=== PATIENT | female | born 1950 | race Caucasian/White ===

== ENCOUNTER 2018-03-07 15:28 | Outpatient (CLI) | payer MEDICARE | END 2018-03-07 15:29 | disposition home or self-care (01) | LOC: BICMAMMO 15:28 | PROVIDERS: ATTEND Obstetrics & Gynecology | DX: Z12.31 Encounter for screening mammogram for malignant neoplasm of breast (principal); R92.1 Mammographic calcification found on diagnostic imaging of breast | CPT/HCPCS: 77063; 77067 ==

== ENCOUNTER 2019-02-12 17:14 | Emergency (ER) | payer MEDICARE ==
[2019-02-12] MEDS ORDERED: Acetaminophen 500 MG TAB ONE (17:39)
--- NOTE | 2019-02-12 19:07 | RAD ---
LEFT SHOULDER THREE VIEWS: HISTORY: Patient fell on shoulder today with shoulder pain. FINDINGS: The bones appear somewhat demineralized. There are no signs of fracture or dislocation. IMPRESSION: Negative left shoulder. POS: INGA
== END 2019-02-12 19:10 | disposition home or self-care (01) ==
LOC: SCSER 17:14
DX: S43.402A Unspecified sprain of left shoulder joint, initial encounter (principal); J44.9 Chronic obstructive pulmonary disease, unspecified; F32.9 Major depressive disorder, single episode, unspecified; W19.XXXA Unspecified fall, initial encounter

== ENCOUNTER 2019-07-08 15:23 | Outpatient (CLI) | payer MEDICARE ==
--- NOTE | 2019-07-08 17:08 | MMO ---
Bilateral MAMMO Bilat Screen [facility]. CLINICAL HISTORY: Patient is 68 years old and is seen for screening. The patient has no family history of breast cancer. The patient has no personal history of cancer. VIEWS: The views performed were: bilateral craniocaudal with tomosynthesis and bilateral mediolateral oblique with tomosynthesis. FILMS COMPARED: The present examination has been compared to prior imaging studies performed at [facility] on 10/15/2014, 11/22/2015, 02/21/2017 and 03/07/2018. MAMMOGRAM FINDINGS: The breasts are heterogeneously dense, which could obscure a lesion on mammography. There are vascular calcifications seen in both breasts. There are no suspicious masses, suspicious calcifications, or new areas of architectural distortion. IMPRESSION: THERE IS NO MAMMOGRAPHIC EVIDENCE OF MALIGNANCY. A ROUTINE FOLLOW-UP MAMMOGRAM IN 1 YEAR IS RECOMMENDED. THE RESULTS OF THIS EXAM WERE SENT TO THE PATIENT. ACR BI-RADS Category 2 - Benign finding MAMMOGRAPHY NOTE: 1. A negative mammogram report should not delay a biopsy if a dominant of clinically suspicious mass is present. 2. Approximately 10% to 15% of breast cancers are not detected by mammography. 3. Adenosis and dense breasts may obscure an underlying neoplasm. Reported by: SUE DEE MD Electonically Signed: [id number]
== END 2019-07-08 15:24 | disposition home or self-care (01) ==
LOC: BICMAMMO 15:23
PROVIDERS: ATTEND Obstetrics & Gynecology
DX: Z12.31 Encounter for screening mammogram for malignant neoplasm of breast (principal)
CPT/HCPCS: 77063; 77067

== ENCOUNTER 2019-10-10 11:11 | Outpatient (CLI) | payer MEDICARE ==
[2019-10-10 12:17] LABS: Hemoglobin 13.4 g/dL (12.0-16.0); Mean Corpuscular HGB CONC 33.6 g/dL (32.0-36.0); Mean Corpuscular Hemoglobin 33.7 pg (27.0-31.0); Mean Platelet Volume 6.1 fL (7.4-10.4); Platelet Count 287 thou/uL (130-400); RBC Distribution Width 12.1 % (11.5-14.5); Red Blood Cell (RBC) Count 3.98 mill/uL (4.20-5.40); White Blood Cell (WBC) Count 5.3 thou/uL (4.8-10.8)
== END 2019-10-10 11:12 | disposition home or self-care (01) ==
LOC: LABBT 11:11
PROVIDERS: ATTEND Obstetrics & Gynecology
DX: Z01.812 Encounter for preprocedural laboratory examination (principal); A63.0 Anogenital (venereal) warts
CPT/HCPCS: 85027; 86850; 86900; 86901

== ENCOUNTER 2019-10-13 08:30 | Day surgery (SDC) | payer MEDICARE ==
[2019-10-10 11:28] VITALS: BMI 24.2
[2019-10-13] MEDS ORDERED: CeleCOXIB 100 MG CAP ONE (09:03)
[2019-10-13] MEDS ORDERED: Gabapentin 300 MG CAP ONE (09:03)
[2019-10-13] MEDS ORDERED: Famotidine/PF 20 mg/2ml Vial ONE (09:04)
--- NOTE | 2019-10-13 09:09 | HP ---
PREOPERATIVE HISTORY AND PHYSICAL: SCHEDULED DATE FOR SURGERY: 10/13/2019. HISTORY OF PRESENT ILLNESS: Ms. Washington is 68 years old, who is postmenopausal white female, who has had history of cervical dysplasia in the past. She underwent a LEEP procedure in [address] Montes for high-grade dysplasia. Apparently, the patient reports after the procedure she had recurrent infections that took a while to heal. She subsequently had a followup Pap smear performed by Dr. Gretchen Vasquez in July showing ASC, atypical squamous cells of unknown significance again with high-risk HPV virus. By protocol, Dr. Vasquez attempted colposcopy of the cervix and apparently it was very difficult to visualize any cervical opening due to severe cervical spine stenosis and scar tissue. She was referred to me on August 26 for evaluation. Again, I performed a physical examination along with colposcopy and essentially was unable to visualize the cervical opening or transformation zone due to scarring of the residual cervix. We did give the patient Osphena for the atrophy in hopes to improve the visualization and location of the cervical opening recently. PAST MEDICAL HISTORY: Cervical dysplasia. In addition, arthritis and asthma along with some hypertension. PAST SURGICAL HISTORY: She has had some dental surgery, LEEP procedure in 2017, and also surgery on her wrist. CURRENT MEDICATIONS: 1. Celebrex 200 mg tablet twice daily as needed. 2. Fluticasone propionate 50 mcg per nasal spray suspension daily. 3. Lamotrigine 150 mg tablet . 4. Lorazepam 1 mg daily at bedtime. 5. Osphena 60 mg tablet daily. 6. Sertraline 100 mg tablet daily. 7. Triamterene 37.5 mg - hydrochlorothiazide 25 mg tablet daily. 8. Ventolin inhaler 90 mcg 2 puffs q.4 hours p.r.n. ALLERGIES: SHE HAS NO KNOWN DRUG ALLERGIES. SOCIAL HISTORY: Nonsmoker. No excessive alcohol use. PHYSICAL EXAMINATION: VITAL SIGNS: Height is 5 feet 6 inches, weight 149, BMI 24. Blood pressure 112/70, pulse 77, respirations 18, O2 saturation 98% on room air. HEENT: Within normal limits. CHEST: Clear to auscultation. HEART: Regular rate and rhythm. S1, S2 heart sounds. No murmurs, rubs, or gallops. ABDOMEN: Soft, nontender, and nondistended. No palpable masses. PELVIC: On colposcopic exam, vulva and vagina had no lesions. Urethra had no abnormal discharge or mass. No vaginal tenderness or abnormal vaginal discharge noted. There is palpable residual cervical tissue in the apex of the vagina. There were no lesions visualized on colposcopy externally, but essentially the cervix was scarred and flushed to the vagina. There was no visualized cervical os other than knowing the palpable texture of the cervix when the region of the presumed cervix was being examined. Uterus was small and nontender. Adnexa nontender with no masses. 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 The patient has an unsatisfactory colpo. Also, she has cervical spine stenosis from the LEEP procedure with inability to ascertain the exact location of the cervical os despite recent estrogen therapy treatment trial. We will attempt to locate the cervical os. We created a passage into the cervix to ascertain location and placement of a uterine cervical manipulator with attempt to proceed with robotic total laparoscopic hysterectomy and BSO. I did discuss with the patient the importance of removing the residual cervix and this may not be possible via robotic hysterectomy procedure if unable to isolate the cervix with the manipulator. Therefore, an abdominal hysterectomy may be indicated, where I would be able to palpate the change of the end of the cervix through the vagina in order to get good margins to renew the abnormal tissue completely. Risks and benefits of this procedure, cost, and plan has been laid out for the patient and she is in agreement. She is set up for surgery on 10/13/2019. Job ID: [id number]
[2019-10-13] MEDS ORDERED: ePHEDrine/0.9% NaCl/PF SYRINGE 50 mg/10 ml ONE (10:09)
[2019-10-13] MEDS ORDERED: Dexamethasone 20 MG/5 ML VIAL ONE (10:09)
[2019-10-13] MEDS ORDERED: PROPOFOL 200 MG/20 ML VIAL ONE (10:09)
[2019-10-13] MEDS ORDERED: Glycopyrrolate 0.2 MG/ML 5 ML SYRINGE ONE (10:09)
[2019-10-13] MEDS ORDERED: Rocuronium Bromide 10 MG/ML (10ML VIAL) ONE (10:09)
[2019-10-13] MEDS ORDERED: Ondansetron PF 4 MG/2 ML Vial ONE (10:09)
[2019-10-13] MEDS ORDERED: Lidocaine 1% PF 5 ML VIAL ONE (10:09)
[2019-10-13] MEDS ORDERED: Midazolam HCl 2 mg/2 ml Vial ONE (11:38)
[2019-10-13] MEDS ORDERED: HYDROmorphone 0.5 MG/0.5 ML SYRINGE ONE (12:10)
[2019-10-13] MEDS ORDERED: Fentanyl 100 MCG/2 ML VIAL ONE (12:10)
[2019-10-13] MEDS ORDERED: Bupivacaine PF 0.5% 30 ML VIAL ONE (12:11)
[2019-10-13] MEDS ORDERED: Ondansetron PF 4 MG/2 ML Vial IVP PRN ×2 (14:17→14:42)
[2019-10-13] MEDS ORDERED: Bisacodyl 10 MG SUPP PR PRN (14:17)
[2019-10-13] MEDS ORDERED: diphenhydrAMINE 25 MG CAP PO PRN ×2 (14:17→14:42)
[2019-10-13] MEDS ORDERED: Zolpidem Tartrate 5 MG TAB PO PRN ×2 (14:17→14:42)
[2019-10-13] MEDS ORDERED: Morphine 4 MG/ML VIAL SLOW IVP PRN (14:17)
[2019-10-13] MEDS ORDERED: traMADol HCl 50 MG TAB PO PRN ×2 (14:17)
[2019-10-13] MEDS ORDERED: Promethazine HCl 25 MG/ML VIAL IM PRN ×3 (14:17→14:42)
[2019-10-13] MEDS ORDERED: Simethicone Chewable 80 MG TAB PO PRN (14:17)
[2019-10-13] MEDS ORDERED: Azelastine 137 MCG/Spray 30 ML NS PRN (14:23)
[2019-10-13] MEDS ORDERED: PROVENTIL INHALER 6.7 G (200 INHALATIONS) INH PRN (14:23)
[2019-10-13] MEDS ORDERED: TRIAMTERENE 50 MG PO PRN (14:23)
[2019-10-13] MEDS ORDERED: FLUTICASONE FUROATE NS PRN (14:23)
[2019-10-13] MEDS ORDERED: fentaNYL Citrate/PF 2,000 MCG in Sodium Chloride 0.9% 60 ML IV PRN (14:42)
[2019-10-13] MEDS ORDERED: diphenhydrAMINE 50 MG/ML VIAL IVP PRN (14:42)
[2019-10-13] MEDS ORDERED: diphenhydrAMINE 50 MG/ML VIAL IM PRN (14:42)
[2019-10-13] MEDS ORDERED: Promethazine HCl 25 MG/ML VIAL SLOW IVP PRN (14:42)
[2019-10-13] MEDS ORDERED: Ondansetron HCl/PF 4 MG/2 ML Vial IVP PRN (14:42)
[2019-10-13] MEDS ORDERED: Naloxone HCl 0.4 mg/ml Vial IV PRN (14:42)
[2019-10-13] MEDS ORDERED: Promethazine HCl 25 MG/ML VIAL ONE (14:44)
[2019-10-13] MEDS ORDERED: Communication Order-Pharmacy FS SCH (14:45)
--- NOTE | 2019-10-13 16:37 | OP ---
DATE OF PROCEDURE: 10/13/2019 PREOPERATIVE DIAGNOSES: 1. A 68-year-old white female with history of previous high-grade cervical dysplasia with loop electrosurgical excision procedure. 2. 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 3. Eight cervical stenosis from prior loop electrosurgical excision procedure infection, unable to evaluate colposcopically. POSTOPERATIVE DIAGNOSES: 1. A 68-year-old white female with history of previous high-grade cervical dysplasia with loop electrosurgical excision procedure. 2. 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 3. Eight cervical stenosis from prior loop electrosurgical excision procedure infection, unable to evaluate colposcopically. PROCEDURES PERFORMED: Total abdominal hysterectomy with bilateral salpingo-oophorectomy. PEARL PELLER SURGEON: Raven Santana PA-C ESTIMATED BLOOD LOSS: 50 mL. COMPLICATIONS: None. COUNTS: Correct x2. ANTIBIOTICS: 2 g Ancef on-call to OR. ANESTHESIA: General endotracheal anesthetic agent. FINDINGS: 1. Cervix with scar tissue and being flushed against the vaginal wall with minimal rise of the cervix from the vagina prohibiting placement of the GRACE uterine manipulator and also placed in the cervical cup for determining cervical margins. 2. Clear urine present in De La Cruz catheter postprocedure and bladder was watertight to distention intraoperatively. 3. Post menopausal atretic appearing ovaries and fallopian tubes and uterus. DISPOSITION: Recovery room, stable. DESCRIPTION OF PROCEDURE: The patient previously received informed consent regards to surgery. She was taken back to the operating room, where she received a general endotracheal anesthetic agent without complications. De La Cruz catheter was placed at this time. We then did an exam under anesthesia with a speculum. The cervix was difficult to ascertain its position, but was palpable and extra firmness of the texture of the cervix. It was on the right side of the midline of the vaginal vault. This area was grasped with a tenaculum. When the cervix and uterus were pulled down, you could tell the outline of the cervix, but there was significant amount of scar tissue; however, would presume to be the cervical os. I attempted to pass a tonsil clamp, hemostatic clamp, and then a Metzenbaum scissor incision in this area. I was unable to get into the tissue of the cervical os and endocervical canal. It was noted that the cervical tissue was very diminutive in height and was made a difficult for the cervical cup to fit over the cervix to delineate its margin. Therefore, the plan was switched to a total abdominal hysterectomy and BSO approach. The tenaculum and speculum removed. The abdomen had been already prepped in sterile fashion. A Pfannenstiel incision was made in the lower abdomen, was carried down to the fascia. Fascia was nicked in the midline. Fascial incision was extended bilaterally using curved Carter scissors. The rectus fascia was dissected superiorly and inferiorly off the rectus muscle bellies. The rectus muscle bellies were divided in midline. Peritoneal cavity was entered and peritoneal incision was extended. The Bob O retractor was placed along with a laparotomy sponge, exposing the operative site. The small uterus was grasped at the cornua with Tiny clamps. The left round ligament was isolated, was suture ligated and tied. The round ligament was transected with Bovie cautery, anterior leaf of the broad ligament was entered, dissecting the vesicouterine peritoneum in a layering technique. In the posterior leaf of the broad ligament, a defect was made underlying the IP ligament. This was clamped and transected and tied with a 4.5 tie of 0 Vicryl suture. The left uterine vessels were skeletonized and then, a Omari clamp was placed in the internal cervical os region and this was transected and suture ligated. Straight [place] within the pedicle was then placed grasping the cardinal ligaments and uterosacral ligaments. This was clamped and tied and hemostasis was confirmed. This was carried out again on the patient's right side in similar fashion. Again, the right round ligament was suture ligated and transected. The anterior leaf of the broad ligament was entered. The vesicouterine incision was incised and the bladder was dropped down in layering technique. The bladder was distended during this to ensure that it properly had been atraumatically brought down past the cervical vaginal margin with another centimeter margin of the vaginal tissue due to the history of dysplasia. The uterine vessels were again skeletonized posterior window and defect in the posterior broad ligament was made clamping the IP ligament. This was also transected and suture ligated with 4.5 suture of 0 Vicryl. As the uterine vessels were skeletonized, they were clamped again and transected and then suture ligated for hemostasis confirmation. Straight [place] clamp was placed medial to this from the previous pedicle, rasping remainder of the cardinal ligaments and uterosacral ligaments. We then made it down past the cervical vaginal angle. Two Omari clamps were then placed at the vaginal angles. Cervical vaginal angles meeting in the midline. The specimen within endocervix was excised with Carter scissors. Angle sutures were placed with Hofmeister stitch fashion of 0 Vicryl suture bilaterally. Two interrupted [id number] stitches in the vaginal cuff were then placed after confirming hemostasis. The pelvis was irrigated and suctioned. There was area of a small venous bleed on the left pelvic sidewall. This was grasped with a DeBakey pickups and it cauterized for hemostasis. The pelvis again was irrigated and suctioned. Hemostasis was confirmed. All the fallopian tubes and ovaries had been removed intact on specimens that all been sent for final pathology. The Bob O retractor was removed along with all the laparotomy sponges. The rectus muscle bellies were inspected, noted to be hemostatic. The fascia was closed with 0 PDS suture x2 in a running continuous fashion. Subcutaneous tissue was noted to be hemostatic prior to skin approximation with zuri. The surgery was terminated. No anesthetic or surgical complications occurred. Job ID: [id number]
[2019-10-13] MEDS: Acetaminophen 1,000 MG in Premix Bag 1 BAG IVPB SCH (18:28)
[2019-10-13] MEDS: Sodium Chloride 0.9% 1,000 ML IV SCH (18:28)
[2019-10-13] MEDS: Ketorolac Tromethamine 30 MG/ML VIAL IVP SCH (18:28)
[2019-10-13] MEDS ORDERED: lamoTRIgine 100 MG TAB PO SCH (21:00)
[2019-10-13] MEDS ORDERED: Lorazepam 1 MG TAB PO SCH (21:00)
[2019-10-14] MEDS: Acetaminophen 1,000 MG in Premix Bag 1 BAG IVPB SCH ×3 (00:58→13:16)
[2019-10-14] MEDS: Ketorolac Tromethamine 30 MG/ML VIAL IVP SCH ×2 (01:35→08:20)
[2019-10-14] MEDS: Sodium Chloride 0.9% 1,000 ML IV SCH ×3 (03:05→13:20)
[2019-10-14 05:59] LABS: Hemoglobin 10.4 g/dL (12.0-16.0); Mean Corpuscular HGB CONC 33.5 g/dL (32.0-36.0); Mean Corpuscular Hemoglobin 33.7 pg (27.0-31.0); Mean Platelet Volume 5.9 fL (7.4-10.4); Platelet Count 237 thou/uL (130-400); RBC Distribution Width 12.1 % (11.5-14.5); Red Blood Cell (RBC) Count 3.09 mill/uL (4.20-5.40); White Blood Cell (WBC) Count 8.2 thou/uL (4.8-10.8)
--- NOTE | 2019-10-14 08:27 | PDOC.EVN ---
Event Note - Event Note Event Note: Some nausea this AM. Otherwise; good pain control. O; HCT 31.1% FRED 90/52 P85 R18 U/o 2400 ml ABDO soft/ non distended. Inciison c/d/i. A/P post op day 1 from CORAZON/BSO for recurrent cervical dysplasia with severely stenotic cervix from prior LEEP..Routine post op care.
[2019-10-14] MEDS ORDERED: HYDROcodone/Acetaminophen 5/325 mg Tablet PO PRN ×2 (11:31→11:32)
[2019-10-14 12:03] VITALS: BP 89/51; TEMP 99.1
[2019-10-14] MEDS ORDERED: Ibuprofen 800 MG TAB PO SCH (14:00)
--- NOTE | 2019-10-15 04:36 | DIS ---
DATE OF ADMISSION: 10/13/2019 DATE OF DISCHARGE: 10/14/2019 DIAGNOSES: 1. Recurrent cervical dysplasia. 2. Severely stenotic cervical stenosis. 3. Desires definitive surgical therapy. PROCEDURE PERFORMED: CORAZON-BSO. SUMMARY OF HOSPITAL COURSE: Ms. Washington is a 68-year-old white female with history of high-grade cervical dysplasia in the past, where she underwent a LEEP procedure of the cervix approximately two years prior. She had postoperative complication with significant infection and as a result had developed severe cervical stenosis. She had had again followup Pap smear showing atypical cervical cells with high-risk HPV infection and there was inability to perform colposcopy due to the scarring of the cervix and the stenosis. She had an attempted robotic hysterectomy, but the cervical stenosis made it unable to find appropriate endocervical canal tracking and also the cervix was flushed with vagina making a difficult to delineate its margin. She therefore underwent a CORAZON-BSO with removal of the uterus, cervix, and bilateral fallopian tubes and ovaries. Postoperatively, the patient has done well. She is tolerating a regular diet, ambulating, voiding without difficulty on postop day #1. Pain control has been adequate with oral Talihina and ibuprofen. Her hematocrit on postop day #1 was 31.1%. Pathology is pending at time of this dictation. She desires to be discharged home and she will be discharged home with Talihina 5-325 mg one p.o. q.6 hours p.r.n. pain and [id number] ibuprofen as directed. She will be scheduled for staple removal of her incision on postop day #7 and also six weeks postoperatively. We will follow up pathology once it is available in the next day or so. Job ID: [id number]
== END 2019-10-14 16:40 | disposition home or self-care (01) ==
LOC: SDC 08:30 → 3SE 14:16 → SDC 10-14 16:40
PROVIDERS: ATTEND Obstetrics & Gynecology
PROC: 0UT90ZZ Resection of Uterus, Open Approach (ICD-10-PCS; principal; 2019-10-13)
PROC: 0UT20ZZ Resection of Bilateral Ovaries, Open Approach (ICD-10-PCS; 2019-10-13)
PROC: 0UT70ZZ Resection of Bilateral Fallopian Tubes, Open Approach (ICD-10-PCS; 2019-10-13)
DX: N87.0 Mild cervical dysplasia (principal); D25.9 Leiomyoma of uterus, unspecified; N83.312 Acquired atrophy of left ovary; N83.311 Acquired atrophy of right ovary; N88.2 Stricture and stenosis of cervix uteri; I10 Essential (primary) hypertension; M19.90 Unspecified osteoarthritis, unspecified site; J45.909 Unspecified asthma, uncomplicated; Z79.1 Long term (current) use of non-steroidal anti-inflammatories (NSAID); Z79.899 Other long term (current) drug therapy; Z91.040 Latex allergy status
CPT/HCPCS: 58150; 85027; 86850; 86900; 86901; 88307; J3010; 36415; J0131; J0690; J1100; J1170; J1885; J2001; J2250; J2405; J2550; J2704; J3490; S0020; S0028

== ENCOUNTER 2021-01-10 11:48 | Outpatient (CLI) | payer MEDICARE | END 2021-01-10 11:49 | disposition home or self-care (01) | LOC: BICMAMMO 11:48 | PROVIDERS: ATTEND Obstetrics & Gynecology | DX: Z12.31 Encounter for screening mammogram for malignant neoplasm of breast (principal) | CPT/HCPCS: 77063; 77067 ==

== ENCOUNTER 2021-04-08 12:11 | Outpatient (CLI) | payer MEDICARE | END 2021-04-08 12:12 | disposition home or self-care (01) | LOC: BICRAD 12:11 | PROVIDERS: ATTEND Internal Medicine Rheumatology | DX: E83.52 Hypercalcemia (principal); Z87.891 Personal history of nicotine dependence | CPT/HCPCS: 71046 ==

== ENCOUNTER 2021-04-27 15:05 | Outpatient (CLI) | payer MEDICARE | END 2021-04-27 15:06 | disposition home or self-care (01) | LOC: BICMAMMO 15:05 | PROVIDERS: ATTEND Internal Medicine Rheumatology | DX: M81.0 Age-related osteoporosis without current pathological fracture (principal) | CPT/HCPCS: 77080 ==

== ENCOUNTER 2024-11-25 07:28 | Day surgery (SDC) | payer MEDICARE ==
[2024-11-25] MEDS: Cosyntropin 250 MCG VIAL SLOW IVP SCH (08:25)
[2024-11-25 09:34] VITALS: BP 120/68; TEMP 97.8
== END 2024-11-25 10:28 | disposition home or self-care (01) ==
LOC: ONC/OP 07:28
PROVIDERS: ATTEND Internal Medicine Rheumatology
DX: E27.40 Unspecified adrenocortical insufficiency (principal)
CPT/HCPCS: 80400; 82533; 96374; G0463; J0834; 36415; 99211